=== PATIENT | male | born 1970 | race Caucasian/White ===

== ENCOUNTER 2018-03-14 08:33 | Emergency (ER) | payer BC ==
[~2018-03-14] VITALS: Ht 182.8 cm; Wt 111.1 kg
[~2018-03-14 08:33] MED LIST: BACTROBAN OINT22 GM PO; KEFLEX500 MG PO
[2018-03-14 09:21] LABS: BASO # 0.1 10*3/uL (0.0-0.1); BASO % 0.6 % (0.0-1.0); EOS # 0.2 10*3/uL (0.0-0.4); EOS % 1.7 % (1.0-4.0); HEMATOCRIT 45.5 % (42.0-52.0); HEMOGLOBIN 15.7 g/dl (14.0-18.0); LYMPH # 2.8 10*3/uL (1.3-4.4); LYMPH % 28.9 % (27.0-41.0); MEAN CELL VOLUME 86.2 fl (80.0-94.0); MEAN CORPUSCULAR HGB 29.7 pg (27.0-31.0); MEAN CORPUSCULAR HGB CONC 34.5 g/dl (33.0-37.0); MEAN PLATELET VOLUME 10.1 fl (9.6-12.3); MONO # 0.6 10*3/uL (0.1-1.0); MONO % 6.5 % (3.0-9.0); PLATELET COUNT AUTOMATED 245 10*3/uL (130-400); RED BLOOD COUNT 5.28 10*6/uL (4.50-5.90); RED CELL DISTRI WIDTH 13.3 % (0-14.5); WHITE BLOOD COUNT 9.7 10*3/uL (4.8-10.8)
[2018-03-14 09:39] LABS: ALBUMIN 4.5 gm/dl (3.1-4.5); ALKALINE PHOSPHATASE 91 U/L (45-117); BUN 10 mg/dl (7-24); CHLORIDE 101 mmol/L (98-107); CREATININE 0.97 mg/dL (0.70-1.30); POTASSIUM 3.6 mmol/L (3.5-5.1); SGOT/AST 24 IU/L (3-35); SGPT/ALT 46 U/L (12-78); SODIUM 139 mmol/L (136-145); TOTAL PROTEIN 7.8 gm/dL (6.4-8.2)
[2018-03-14 09:40] LABS: TROPONIN I < 0.015 ng/ml (<0.045)
[2018-03-14 09:57] LABS: BILIRUBIN NEGATIVE (NEGATIVE); BLOOD TRACE-INTACT (NEGATIVE); CLARITY SL CLOUDY (CLEAR); COLOR STRAW (YELLOW); GLUCOSE NEGATIVE (NEGATIVE); KETONE NEGATIVE (NEGATIVE); LEUKO ESTERASE NEGATIVE (NEGATIVE); NITRITE NEGATIVE (NEGATIVE); PH 5.5 (5.0-9.0); UROBILINOGEN 0.2 E.U./dl (0.2-1.0)
[2018-03-14] MEDS ORDERED: PENICILLIN-VK500 MG PO (10:32)
[2018-03-14] MEDS ORDERED: LISINOPRIL-HCT1 EACH PO (10:32)
[2018-03-14] MEDS ORDERED: FLONASE ALLERG9.9 ML NAS (10:32)
== END 2018-03-14 10:42 | disposition home or self-care (01) ==
LOC: ED 08:33
PROVIDERS: Emergency Medicine
DX: I10 Essential (primary) hypertension (principal); K02.9 Dental caries, unspecified; R09.81 Nasal congestion; F17.200 Nicotine dependence, unspecified, uncomplicated; Z71.6 Tobacco abuse counseling

== ENCOUNTER → 2025-10-13 | Outpatient (CLI) | payer BC ==
[~2025-10-13] MED LIST changes: +FLONASE ALLERG9.9 ML NAS; +LISINOPRIL-HCT1 EACH PO; +PENICILLIN-VK500 MG PO
== END | disposition home or self-care (01) ==
LOC: RAD 10:46
PROVIDERS: ATTEND Family Medicine
DX: M25.561 Pain in right knee (principal)